=== PATIENT | male | born 1960 | race Caucasian/White ===

== ENCOUNTER 2020-12-25 15:25 | Outpatient (REF) | payer BC, SELFPAY ==
[2020-12-25 18:44] LABS: Estimated Average Glucose 166 mg/dL; Hemoglobin A1c % 7.4 %
[2020-12-25 18:50] LABS: Alanine Aminotransferase 25 U/L (0-40); Albumin Level 4.2 g/dL (3.5-5.0); Alkaline Phosphatase 71 U/L (39-117); Anion Gap 10 (12-20); Aspartate Amino Transferase 19 U/L (5-37); Bilirubin Total 0.5 mg/dL (0.0-1.0); Blood Urea Nitrogen 18 mg/dL (9-16); Calcium 9.4 mg/dL (8.4-10.2); Carbon Dioxide 31 mmol/L (22-29); Chloride 104 mmol/L (96-108); Estimated Glomerular Filt Rate > 60; Glucose Random 131 mg/dL (60-115); Potassium 4.5 mmol/L (3.3-5.1); Sodium 140 mmol/L (135-145); Total Protein 6.9 g/dL (6.5-8.0)
== END 2020-12-25 15:26 | disposition home or self-care (01) ==
LOC: HO.MANLDS 15:25
PROVIDERS: PCP Internal Medicine; Visit Provider Internal Medicine
DX: R73.01 Impaired fasting glucose (principal)
CPT/HCPCS: 36415; 80053; 83036

== ENCOUNTER 2021-03-27 11:12 | Outpatient (REF) | payer BC, SELFPAY ==
[2021-03-27 13:48] LABS: Alanine Aminotransferase 24 U/L (0-40); Albumin Level 4.1 g/dL (3.5-5.0); Alkaline Phosphatase 76 U/L (39-117); Anion Gap 10 (12-20); Aspartate Amino Transferase 16 U/L (5-37); Bilirubin Total 0.7 mg/dL (0.0-1.0); Blood Urea Nitrogen 15 mg/dL (9-16); Calcium 9.7 mg/dL (8.4-10.2); Carbon Dioxide 30 mmol/L (22-29); Chloride 105 mmol/L (96-108); Cholesterol 144 mg/dL; Estimated Glomerular Filt Rate > 60; Glucose Fasting 136 mg/dL (60-99); HDL Cholesterol 42 mg/dL; LDL Cholesterol Calculated 89 mg/dl; Potassium 4.6 mmol/L (3.3-5.1); Sodium 140 mmol/L (135-145); Total Protein 7.1 g/dL (6.5-8.0); Triglycerides 67 mg/dL
[2021-03-27 13:56] LABS: Estimated Average Glucose 137 mg/dL; Hemoglobin A1c % 6.4 %
== END 2021-03-27 11:13 | disposition home or self-care (01) ==
LOC: HO.MANLDS 11:12
PROVIDERS: PCP Physician Assistant; Visit Provider Physician Assistant
DX: E78.1 Pure hyperglyceridemia (principal); E11.9 Type 2 diabetes mellitus without complications
CPT/HCPCS: 36415; 80053; 80061; 83036

== ENCOUNTER 2022-06-02 10:14 | Outpatient (REF) | payer BC, SELFPAY ==
[2022-06-02 11:29] LABS: Estimated Average Glucose 169 mg/dL; Hemoglobin A1c % 7.5 %
[2022-06-02 11:47] LABS: Alanine Aminotransferase 21 U/L (0-40); Albumin Level 3.9 g/dL (3.5-5.0); Alkaline Phosphatase 75 U/L (39-117); Anion Gap 11 (12-20); Aspartate Amino Transferase 15 U/L (5-37); Bilirubin Total 0.8 mg/dL (0.0-1.0); Blood Urea Nitrogen 15 mg/dL (9-16); Carbon Dioxide 29 mmol/L (22-29); Chloride 105 mmol/L (96-108); Cholesterol 146 mg/dL; Estimated Glomerular Filt Rate > 60; Glucose Fasting 180 mg/dL (60-99); HDL Cholesterol 43 mg/dL; LDL Cholesterol Calculated 93 mg/dl; Potassium 4.8 mmol/L (3.3-5.1); Sodium 140 mmol/L (135-145); Total Protein 6.4 g/dL (6.5-8.0); Triglycerides 50 mg/dL
[2022-06-02 15:07] LABS: Creatinine Urine 76.05 mg/dL; Microalbumin Urine < 5.0 mg/L
== END 2022-06-02 10:15 | disposition home or self-care (01) ==
LOC: HO.MANLDS 10:14
PROVIDERS: Visit Provider Internal Medicine
DX: E11.9 Type 2 diabetes mellitus without complications (principal)
CPT/HCPCS: 36415; 80053; 80061; 82043; 83036

== ENCOUNTER 2023-08-19 11:03 | Outpatient (REF) | payer BC, SELFPAY ==
[2023-08-19 14:16] LABS: Rheumatoid Factor < 13.0 IU/mL (<15.0)
[2023-08-19 14:24] LABS: Erythrocyte Sedimentation Rate 5 MM/HR (0-15)
[2023-08-19 14:41] LABS: C Reactive Protein 0.12 mg/dL (< or = 0.50)
[2023-08-21 19:47] LABS: Anti Nuclear Antibody Screen NEGATIVE (NEGATIVE)
[2023-08-23 17:29] LABS: HLA B27 Negative (Negative)
== END 2023-08-19 11:04 | disposition home or self-care (01) ==
LOC: HO.MANLDS 11:03
PROVIDERS: Visit Provider Physician Assistant
DX: M54.59 Other low back pain (principal)
CPT/HCPCS: 36415; 85652; 86038; 86140; 86431; 86812

== ENCOUNTER 2024-06-01 13:57 | Outpatient (REF) | payer BC, SELFPAY ==
[2024-06-01 18:54] LABS: Alanine Aminotransferase 29 U/L (0-40); Albumin Level 4.3 g/dL (3.5-5.0); Alkaline Phosphatase 76 U/L (39-117); Anion Gap 13 (12-20); Aspartate Amino Transferase 22 U/L (5-37); Bilirubin Total 0.7 mg/dL (0.0-1.0); Blood Urea Nitrogen 21 mg/dL (9-16); Calcium 9.7 mg/dL (8.4-10.2); Carbon Dioxide 26 mmol/L (22-29); Chloride 105 mmol/L (96-108); Estimated Glomerular Filt Rate > 60; Glucose Random 134 mg/dL (60-115); Potassium 4.7 mmol/L (3.3-5.1); Sodium 139 mmol/L (135-145); Total Protein 8.1 g/dL (6.5-8.0)
== END 2024-06-01 13:58 | disposition home or self-care (01) ==
LOC: HO.MANLDS 13:57
PROVIDERS: Visit Provider Internal Medicine
DX: J18.9 Pneumonia, unspecified organism (principal)
CPT/HCPCS: 36415; 80053

== ENCOUNTER 2024-09-07 11:52 | Outpatient (REF) | payer MEDICARE, SELFPAY ==
--- OUTSIDE RECORDS SUMMARY | 2024-09-07 14:06 | XMS_ITS | Data Portability ---
Author Organization [facility], [facility] Address [address] [place] [address] Assessment Encounter Date Assessment Date Assessment LastModified by Organization Details LastModified Time 06/09/2023 06/09/2023 PRIMARY DIAGNOSI S: Osteoarthritis of the right hip. REASON FOR ADMISSION: The patient is being admitted for an anterior right total hip arthroplasty by Dr. Garcias on 06/17/2023. HISTORY OF PRESENT ILLNESS: Mr. Oconnor is an extremely, friendly and pleasant 62-year-old gentleman who presents today for evaluation of pain in his right hip prior to right total hip arthroplasty. He has a known longstanding history of right hip osteoarthritis and has undergone a lengthy course of conservative management with generalized failure of nonsurgical options. His pain is severe and worsens with activity. It has gotten to the point where it is significantly interfering with his ability to perform activities of daily living as well as daily social task. He is now interested in pursuing an anterior right total hip arthroplasty by Dr. Garcias for definitive relief of his pain from osteoarthritis. PAST MEDICAL HISTORY: 1. Osteoarthritis of the right hip. 2. Paroxysmal atrial fibrillation. 3. Hypertension. 4. Premature ventricular complexes. 5. Hyperlipidemia. 6. Type 2 diabetes. PAST SURGICAL HISTORY: Left total knee arthroplasty. MEDICATIONS: 1. Aspirin 81 mg tablet daily at night. 2. Fish oil daily, which the patient has stopped in preparation for surgery. 3. Flecainide 100 mg tablet as needed. 4. Lisinopril 20 mg tablet daily in the morning. 5. Metformin 500 mg tablet extended release at night. 6. Metoprolol succinate extended release 50 mg tablet daily in the morning. 7. Simvastatin 20 mg tablet daily at bedtime. ALLERGIES: HE STATES THAT HE IS ALLERGIC TO ELAINE INHIBITORS, WHICH CAUSES A COUGH. SOCIAL HISTORY: He is . He denies alcohol, illicit drug use or tobacco use. He is a former smoker, he quit 40 years ago. PHYSICIANS: The patient's primary care physician is Dr. Jose Garner. REVIEW OF SYSTEMS: The patient's 12-point review of systems is negative unless mentioned in the HPI. PHYSICAL EXAMINATION: VITAL SIGNS: Height is 195 cm, weighs is 237 pounds, temperature is 97.6, blood pressure is 129/76, and pulse of 67. GENERAL: Alert and oriented, normal affect, and grooming. SKIN: Intact without rash or lesions. Nails without clubbing or cyanosis. HEENT: Normocephalic. Conjunctivae pink. Sclerae are anicteric. NECK: Supple. Trachea midline. No lymphadenopathy. LUNGS: Clear to auscultation bilaterally. Breathing is unlabored. HEART: Regular rate and rhythm, normal S1, S2. No murmurs, rubs or gallops appreciated. ABDOMEN: Soft, nontender with normal bowel sounds. EXTREMITIES: Right hip, no erythema, abrasion or edema noted. There is no effusion. The lower extremity alignment is neutral. He is not experiencing hip tenderness to palpation. There is a positive Stinchfield test. Range of motion shows extension of 0 degrees, flexion of 100 to 110 degrees, internal rotation and flexion is 15 degrees, external rotation and flexion 30-35 degrees, abduction is 30-40 degrees and adduction is 10-15 degrees. No hip deformity was present. He does ambulate with an antalgic gait on the right leg. There is 2+ dorsalis pedis pulses. There is normal sensation bilaterally to lower extremities, there is 5/5 ankle dorsiflexion and plantar flexion bilaterally. PREOPERATIVE DIAGNOSTIC DATA: Orthopedic x-rays of the hip show severe DJD present to the right hip. There are changes consistent with osteoarthritis including joint space narrowing, subchondral sclerosis and osteophyte formation, arthrosis, primarily affecting the superior compartment. EKG which was performed at the medicine preoperative clinic showed a sinus bradycardia with a heart rate of 53. PREOPERATIVE LABORATORY DATA: CBC, coags and chemistries were reviewed and are satisfactory for surgery. Hemoglobin A1c was 7.0. His creatinine was 0.9. His GFR was 96. ASSESSMENT AND PLAN: The patient has advanced osteoarthritis of the right hip and is now scheduled for an anterior right total hip arthroplasty with Dr. Garcias on 06/17/2023. He was seen by the medicine consult program who deemed him to be a low cardiovascular and a low pulmonary risk. The patient states that he has episodes where when he is on his back, he feels like his breathing wakes him up. Medicine stated that he had untreated sleep apnea, so we will monitor end tidal CO2 and O2 monitoring when sleeping. We will monitor point of cares and order sliding scale insulin as needed for his elevated hemoglobin A1c. He will receive IV TXA. We will place on aspirin postoperatively for DVT prophylaxis. We will monitor him on telemetry postop throughout his hospital stay. We are awaiting a note from his lithograph designer for risk stratification prior to surgery. Discharge plan will be to home with services, the patient would like to stay overnight after surgery. He has been counseled regarding the risks and benefits of the proposed procedures. His questions have been answered. He acknowledges understanding. The patient wishes to proceed with an anterior right total hip arthroplasty by Dr. Garcias. CONTACT: His Beth at [phone]. Prescription given at the time of the history and physical include aspirin, Colace, pantoprazole and Zofran. The patient did not want a prescription for Celebrex. He will require prescriptions for pain medication at the time of discharge. [email or web address] Not available 06/09/2023 13:48:56 07/28/2023 07/28/2023 Imaging: Imaging ordered, independently reviewed and interpreted by Andrew Garcias MD reveals the following findings: XR Hip Right hip: Two views of the hip were obtained including AP pelvis and groin lateral views. Status post hip surgery: Status post LARA with no evidence of complication, well fixed, well aligned, and located. There is good church of leg length and offset without loosening or migration. Impression: Status post right anterior total hip arthroplasty, 6 weeks out Plan: The patient is doing well, continue activities as tolerated. Follow up with repeat radiographs in 1 year, or sooner if problems arise. [email or web address] Not available 07/28/2023 16:45:31 07/21/2024 07/21/2024 Imaging: Imaging ordered, independently reviewed and interpreted by Andrew Garcias MD reveals the following findings: XR Knee Right Knee: Three views of the knee were obtained including AP, sunrise, and lateral views. Status post medial unicompartmental knee arthroplasty. There is some radiolucency underneath the tibial component consistent with possible loosening, there is also progressive osteoarthritis present within the lateral and patellofemoral compartments. There is no evidence of osteolysis. No fractures are present. Alignment: Neutral XR Hip Left Hip: Two views of the hip were obtained including AP pelvis and groin lateral views. Severe DJD present. Changes consistent with osteoarthritis including joint space narrowing, subchondral sclerosis, and osteophyte formation. Arthrosis primarily affects the superior compartment. Impression: Right failed partial knee replacement Plan: We recommend revision total knee arthroplasty. There are not signs of infection at this point but the patient understands that if infection is seen at the time of surgery, we would instead proceed with a staged approach to the knee. Prior to surgery the patient needs to have the following: CBC, CMP, medical clearance, Risks and benefits of surgery were discussed with the patient and the patient understood. We discussed the alternatives and details of surgery and postoperative care with the patient. The patient understands the concepts of surgery and the postoperative conditions required for healing. The patient further understands that surgery can have unfavorable outcomes. In particular, we discussed the possible complications of nonhealing of the tissues and need for reoperation, nerve injury, bleeding or blood loss requiring transfusion, hematoma or complications of anticoagulation used to prevent blood clots, infection requiring further surgery or removal of implants, massive infection requiring amputation, or continued or worse pain. We also discussed worsening of chronic medical conditions and life-threatening complications including stroke, clot, heart attack, pulmonary embolism and related to the surgery or anesthesia, or other factors. The patient understands these risks and benefits of surgery and wishes to proceed, and has signed consent willfully. VTE risk factors: History of VTE: No Active malignancy (excluding skin cancer): No Systolic heart failure (LVEF < 40%): No Bilateral TKA or LARA being performed: No Current use of hormonal therapy: No (Testosterone use excluded) Oral contraceptive pills Hormone replacement therapy Known thrombophilic disorder: No Antiphospholipid Syndrome Factor V Leiden Prothrombin Gene Mutation Protein C/S Deficiency Anti-Thrombin Deficiency Paroxysmal Nocturnal Hemoglobinuria (PNH) Myeloproliferative Disorder/ZOË-2 Mutation Polycythemia Vera Chronic Myelogenous Leukemia Essential Thrombocytosis Total risk factors: 0 Based on risk stratification above, will plan to use aspirin for DVT prophylaxis. Patients prescribed antithrombotic therapy for an indication other than post-operative VTE prophylaxis should be assessed on an individual basis for continuation of their current therapy. If using a direct oral anticoagulant (DOAC) as home regimen, either resume DOAC post-op, or consider temporary transition to Warfarin therapy in the post-operative period. [email or web address] Not available 07/21/2024 12:54:25 Plan of Treatment Reminders Order Date Submit Date Provider Last Modified By Organization Details Last Modified Time Details Appointments None recorded. Lab None recorded. Referral None recorded. Procedures None recorded. Surgeries None recorded. Imaging XR, knee, 4 or more view - bilateral knee pain. room 201 2024 025 [email or web address], [address], [address], [place], [address], 5 07:51:56 XR, hip + pelvis, unilatera l, 2 or 3 view - New eval L hip. AB protocol. room 201 2024 025 [email or web address] [facility], [address], [address], [place], [address], 5 07:51:56 XR, hip + pelvis, unilatera l, 2 or 3 view - rm 201 pramod hip. new XR per AB 2023 024 [email or web address] [facility], [address], [address], [place], [address], 4 06:19:31 XR, hip, unilatera l, 2 or 3 view - 202 2nd PO RTHR AB 2023 024 nhulse [facility], [address], [address], [place], [address], 4 23:19:36 XR, pelvis, 1 or 2 view 2023 024 [email or web address] [facility], [address], [address], [place], [address], 4 17:54:45 Medication Orders aspirin 325 mg tablet,de layed release [id number], [address] [place], [address], 5 11:16:23 Colace 100 mg capsule [id number], [address] [place] [address], [address], 11:16:53 pantopraz ole 40 mg tablet,de layed release [address]23 [email or web address] [id number] [address] [place], [address], 5 11:19:18 ondansetr on HCl 4 mg tablet 2023 024 [id number], [address] [place], [address], 11:18:20 Patient TargetsNo targets recorded. Patient InstructionsNo instructions recorded. Reason for Referral None Reported. Results Created Date Observation Date Name Description Value Unit Range Abnormal Flag Note LastModifiedBy Organization Detail LastModifiedTime 11/13/19 24 11/23/2021 imagi ng/di agnos tic resul t No observ ation record ed. [email or web address] Not Available 10/16 23:19:13 11/17/19 24 11/17/2023 XR, hip + pelvi s, unila teral , 2 or 3 view [email or web address]:/ [email or web address] ?Encry pted=s hAaTro YD8dLq bEUv6g %2BXZw aYqtaq 0bqfl% 2Fg9IQ a4ajBk vP9nXo QUaueC m3YtLR FvZlgJ JJ8mAn HZtai3 4a3541 AC0KrY 3SEWKS vKiQtr MwF INTERFACE [facility] [address] [facility] [address], [place], [address], 11/17/2023 11:21:52 11/17/19 24 11/17/2023 XR, hip + pelvi s, unila teral , 2 or 3 view [email or web address]:/ [email or web address] ?Encry pted=s hAaTro YD8dLq bEUv6g %2BXZw aYqtaq 0bqfl% 2Fg9IQ a4ajBk vP9nXo QUaueC m3YtLR FvZl J8Mesa HZtai3 8a7938 AC0KrY 3SEWKS vKiQtr MwF INTERFACE [facility] [address], [place], [address], 11/17/2023 11:21:54 07/22/19 25 07/21/2024 XR, knee, 4 or more view [email or web address]:/ [email or web address] ?Encry pted=s hAaTro YD8dLq bEUv6g %2BXZw aYqtaq 0bqfl% 2Fg9IQ a4ajBk vP9nXo QUaueC m3YtLR FvZl JJ8mAn HZtai3 1m9585 AC0Kla nqDUKS nKiQtr MwF INTERFACE [facility] [address], [place], [address], 07/21/2024 11:32:08 07/22/19 25 07/21/2024 XR, knee, 4 or more view [email or web address]:/ [email or web address] ?Encry pted=s hAaTro YD8dLq bEUv6g %2BXZw aYqtaq 0bqfl% 2Fg9IQ a4ajBk vP9nXo QUaueC m3YtLR FvZlgJ JJ8mAn HZtai3 9x1042 AC0Kla nqDUKS nKiQtr MwF INTERFACE [facility] [address], [place], [address], 07/21/2024 11:32:09 07/22/19 25 07/21/2024 XR, hip + pelvi s, unila teral , 2 or 3 view [email or web address]:/ [email or web address] ?Encry pted=s hAaTro YD8dLq bEUv6g %2BXZw aYqtaq 0bqfl% 2Fg9IQ a4ajBk vP9nXo QUaueC m3YtLR FvZlgJ JJ8mAn HZtai3 5s4638 AC0Kla nqDUKe vKiQtr MwF INTERFACE [facility] [address] [facility] [address], [place], [address], 07/21/2024 11:37:43 07/22/19 25 07/21/2024 XR, hip + pelvi s, unila teral , 2 or 3 view [email or web address]:/ [email or web address] ?Encry pted=s hAaTro YD8dLq bEUv6g %2BXZw aYqtaq 0bqfl% 2Fg9IQ a4ajBk vP9nXo QUaueC m3YtLR FvZlgJ JJ8mAn HZtai3 6t6014 AC0Kla nqDUKe vKiQtr MwF INTERFACE [facility] [address] [facility] [address], [place], [address], 07/21/2024 11:37:45 Result Notes Documentation Provider Name and Address Organization Details Recorded Time Xr, Hip + Pelvis, Unilateral, 2 Or 3 View : [email or web address] Encrypted=vqYaFenUR7iAgsU Uv6g%6LCMafXtvtv5kwxw%2Fg 0HAy2xhUzbX9jMwIIqvnYt4Bj SANdZrpOJU6gExDDbtz01k549 4VJ5JqQ2EUPLMtLdGowQlR Not Available [facility] 11/17/2023 11:21: 52 Xr, Hip + Pelvis, Unilateral, 2 Or 3 View : [email or web address] Encrypted=bsJbWkhUW2uFelC Uv6g%1KTCkyYvqoh0xylh%2Fg 7AJc9nvWakX2aJgLLmfkWt2Tn JZDgQnmJPS6aKbWVxcs52e323 0JB1IyO5CTPYPnRrXcwXyY Not Available [facility] 11/17/2023 11:21: 54 Xr, Knee, 4 Or More View : [email or web address] Encrypted=uoBdYwgJL2gVmlV Uv6g%0PWRqaZikfd1rniz%2Fg 0ZLm3kfUtrQ6qGzJCsesVm9Ny CWVnKiaEHL2lKbXJkav94i792 0LI1XmbwcQHXKoMoCslVmX Not Available [facility] 07/21/2024 11:32: 09 Xr, Knee, 4 Or More View : [email or web address] Encrypted=soGaTgjID4aYckS Uv6g%2ZNVujTblir3cicn%2Fg 7LIi1lvFtmF3fMzLHtreAp2Ms LWPkLstUOC5xXqZEqnt97r758 5UC0IbbvvKCTSgRwPzvLqH Not Available [facility] 07/21/2024 11:32: 10 Xr, Hip + Pelvis, Unilateral, 2 Or 3 View : [email or web address] Encrypted=eoNsQkqNI9jCqiG Uv6g%6ZWNyrNolvo2zskn%2Fg 0BKt3ykQsxX9cUgIGxitLh5Yn HGLwJbgRJC2zGgLAyst61m252 4LP0IrbzvKPFphUlGzgRjW Not Available [facility] 07/21/2024 11:37: 44 Xr, Hip + Pelvis, Unilateral, 2 Or 3 View : [email or web address] Encrypted=euVjTvhTH5lRlpK Uv6g%6JUCagIatcj1onql%2Fg 2MAg7glCtuP0hCxDXmbyCw6Ay FHEuXssVGM5bRmPQdck69c978 9SM3UnbixQENlfLgXlqVwW Not Available [facility] 07/21/2024 11:37: 46 Problems Name Problem SNOMED Code Status Onset Date Resolution Date Notes Provider Name and Address Organization Details Recorded Time No complaints 819350015 Active Status : 'I'; Not Available [facility] 4 09:12:00 Osteoarthr itis of right knee joint 0853564827767 00 Active 2024 Andrew Garcias MD [address], [place], [address] , [facility] 5 12:54:12 Type 2 diabetes mellitus 99499704 Active 2021 Status : 'A'; Not Available [facility] 4 10:58:45 Paroxysmal atrial fibrillati on 130618204 Active 2021 Status : 'A'; Not Available [facility] 4 10:58:45 Pain of left shoulder joint 6990322040659 9109 Active 2021 Status : 'A'; Not Available [facility] 4 10:58:45 History of total replacemen t of right hip joint 8431797409671 00 Active 2023 Andrew Garcias MD [address], [place], [address] , [facility] 4 16:45:29 Problem Notes None recorded. Procedures Surgical History Date Name Laterality Status Provider Name and Address Organization Details Recorded Time 4 Hip Kenalog Injection, L/R w/US completed Som Whiting PA-C [address], [place], [address], [facility] 11/17/2023 14:09:59 Imaging Results None recorded. Procedure Notes None recorded. Medical Equipment None Reported. Allergies No known drug allergies Medications Name Sig Start Date Stop Date Status Note LastModified by Organization Details LastModified Time Prescriptio n - New 07/21 completed french cord binder 06/05 Not Available Not Available Not Available amoxicillin 500 mg capsule TAKE 4 CAPSULES BY MOUTH 1 HOUR PRIOR TO COMING IN FOR A DENTAL APPOINTME NT. active Not Available Not Available No t Available atorvastati n 40 mg tablet TAKE 1 TABLET BY MOUTH 1 TIME EACH DAY. active Not Available Not Available No t Available prednisone 10 mg tablet TAKE 4 TABLETS BY MOUTH X 2 DAYS, 3 TABLETS X 2 DAYS, 2 TABLETS X 2 DAYS, 1 TABLET X 2 DAYS 07/21 completed Not Available Not Available Not Available doxycycline hyclate 100 mg capsule TAKE 1 CAPSULE BY MOUTH TWICE A DAY FOR 10 DAYS 07/21 completed Not Available Not Available Not Available atorvastati n 20 mg tablet TAKE 1 TABLET BY MOUTH EVERY DAY 07/21 completed Not Available Not Available Not Available azithromyci n 250 mg tablet TAKE 2 TABLETS BY MOUTH TODAY, THEN TAKE 1 TABLET DAILY FOR 4 DAYS DIRECTED 07/21 completed Not Available Not Available Not Available benzonatate 200 mg capsule TAKE 1 CAPSULE BY MOUTH THREE TIMES A DAY NEEDED FOR 7 DAYS 07/21 completed Not Available Not Available Not Available metoprolol succinate ER 50 mg tablet,exte nded release 24 hr TAKE 1 TABLET BY MOUTH EVERY DAY active Not Available Not Available No t Available lisinopril 20 mg tablet TAKE 1/2 TABLET BY MOUTH EVERY DAY active Not Available Not Available No t Available ondansetron HCl 4 mg tablet TAKE 1 TABLET BY MOUTH THREE TIMES A DAY DIRECTED FOR 7 DAYS 07/21 completed Not Available Not Available Not Available glipizide ER 5 mg tablet, extended release 24 hr TAKE 1 TABLET BY MOUTH EVERY DAY 07/21 completed Not Available Not Available Not Available loteprednol etabonate 0.2 % eye drops,suspe nsion INSTILL 1 DROP INTO BOTH EYES TWICE A DAY active Not Available Not Available No t Available aspirin 81 mg tablet,gayle yed release TAKE 1 TABLET BY MOUTH EVERY DAY 07/21 completed Not Available Not Available Not Available tramadol 50 mg tablet TAKE 1 TO 2 TABLETS BY MOUTH EVERY 6 HOURS NEEDED FOR MILD PAIN. DO NOT EXCEED 8 TABLETS (400MG) PER DAY. 07/21 completed Not Available Not Available Not Available ketorolac 0.5 % eye drops INSTILL 1 DROP IN RIGHT EYE THREE TIMES A DAY FOLLOWING SURGERY FOR 3 WEEKS 07/21 completed Not Available Not Available Not Available prednisolon e acetate 1 % eye drops,suspe nsion INSTILL 1 DROP INTO RIGHT EYE TWICE A DAY 07/21 completed Not Available Not Available Not Available aspirin 325 mg tablet,gayle yed release TAKE 1 TABLET BY MOUTH TWICE A DAY DIRECTED 07/21 completed Not Available Not Available Not Available doxycycline monohydrate 100 mg capsule TAKE 1 CAPSULE BY MOUTH TWICE A DAY 07/21 completed Not Available Not Available Not Available pantoprazol e 40 mg tablet,gayle yed release TAKE 1 TABLET BY MOUTH EVERY DAY DIRECTED 07/21 completed Not Available Not Available Not Available erythromyci n 5 mg/gram (0.5 %) eye ointment APPLY 1 APPLICATI ON IN RIGHT EYE AT BEDTIME 07/21 completed Not Available Not Available Not Available pseudoephed rine-guaife nesin ER 80-700 mg tablet,exte nded release Percocet 5-325MG Tablet 1-2 Q 4-6 Hours Prn 06/11 completed Statu s: 'Disc ontin ued'; Not Available Not Available Not Available neomycin-po lymyxin-dex ameth 3.5 mg/mL-10,00 0 unit/mL-0.1 % eye drops INSTILL 1 DROP IN RIGHT EYE THREE TIMES A DAY FOR 1 WEEK THEN DAILY UNTIL SEEN BY DOCTOR 07/21 completed Not Available Not Available Not Available flecainide 100 mg tablet TAKE 1 TABLET BY MOUTH TWICE A DAY 07/21 completed Not Available Not Available Not Available hydrocodone -homatropin e 5 mg-1.5 mg/5 mL oral solution TAKE 5 ML BY MOUTH EVERY 4 HOURS NEEDED FOR 5 DAYS active Not Available Not Available No t Available docusate sodium 100 mg capsule TAKE 1 CAPSULE BY MOUTH TWICE A DAY DIRECTED FOR 30 DAYS 07/21 completed Not Available Not Available Not Available codeine 10 mg-guaifene sin 100 mg/5 mL oral liquid TAKE 10 ML BY MOUTH EVERY 4 HOURS FOR 5 DAYS 07/21 completed Not Available Not Available Not Available levofloxaci n 500 mg tablet TAKE 1 TABLET BY MOUTH EVERY 24 HOURS FOR 7 DAYS 07/21 completed Not Available Not Available Not Available methylpredn isolone 4 mg tablets in a dose pack TAKE 6 TABLETS ON DAY 1 DIRECTED ON PACKAGE AND DECREASE BY 1 TAB EACH DAY FOR A TOTAL OF 6 DAYS 07/21 completed Not Available Not Available Not Available metformin ER 500 mg tablet,exte nded release 24 hr TAKE 4 TABLETS BY MOUTH AT BEDTIME DIRECTED active Not Available Not Available No t Available oxycodone 5 mg tablet TAKE 1/2 TO 1 TABLET BY MOUTH EVERY 4 HOURS NEEDED 07/21 completed Not Available Not Available Not Available Restasis 0.05 % eye drops in a dropperette PLACE 1 DROP INTO EACH EYE EVERY 12 (TWELVE) HOURS. 07/21 completed Not Available Not Available Not Available Januvia 50 mg tablet TAKE 1 TABLET BY MOUTH EVERY DAY FOR 30 DAYS 07/21 completed Not Available Not Available Not Available OneTouch Verio test strips USE DIRECTED ONCE DAILY FOR TESTING BLOOD SUGARS. active Not Available Not Available No t Available Eliquis 5 mg tablet TAKE 1 TABLET BY MOUTH TWICE A DAY active Not Available Not Available No t Available Jardiance 10 mg tablet TAKE 1 TABLET BY MOUTH EVERY DAY active Not Available Not Available No t Available OneTouch Delica Plus Lancet 30 gauge USE 1 LANCET TO SKIN ONCE DAILY FOR TESTING BLOOD SUGARS active Not Available Not Available No t Available Vitals Date Recorded Body height Heart rate Body temperature Body mass index (BMI) Body weight Systolic blood pressure Diastolic blood pressure Provider Name and Address Organization Details Last Updated DateTime 195.58 cm 67 /min 97.6 [degF] 28.1 kg/m2 339417. 39 g 129 mm[Hg] 76 mm[Hg] KEYSHA MONGE [facility] 10:56:24 Date Recorded Body height Body temperature Body mass index (BMI) Body weight Provider Name and Address Organization Details Last Updated DateTime 06/30/2023 195.58 cm 97.1 [degF] 27.6 kg/m2 756815.02 g lisa lockett [facility] 06/30/2023 16:00:13 Date Recorded Body height Body mass index (BMI) Body weight Provider Name and Address Organization Details Last Updated DateTime 07/21/2024 191.77 cm 28.3 kg/m2 473757.53 g Andrew Garcias MD [address], [place], [address], [facility] 07/21/2024 11:16:03 Date Recorded Body height Body mass index (BMI) Body weight Provider Name and Address Organization Details Last Updated DateTime 07/28/2023 195.58 cm 27.3 kg/m2 492496.25 g ISSA BOSTON [facility] 07/28/2023 14:12:07 Date Recorded Body height Provider Name an d Address Organization Details Last Updated DateTime 11/17/2023 195.58 cm DENIA TRIPP [facility] 11/17/2023 10:39:27 Social History None recorded. Functional Status None recorded. Mental Status None recorded. Family History Nothing Reported. Medical History No medical history recorded. Past Encounters Encounter ID Performer Location Encounter Start Date Encounter Closed Date Diagnosis/Indication Diagnosis SNOMED-CT Code Diagnosis ICD10 Code Diagnosis Note [id number] Clif Webster NP [facility] [address] [place] [address] 06/09/2023 10:48:26 06/11/2023 07:30:29 Osteoarthritis of right hip joint [id number] M16.11 [id number] LORRAINE Madrigal [address] [place] [address] 06/30/2023 15:48:12 07/22/2023 14:13:53 History of total replacement of right hip joint [id number] 15253 Z96.641 Postoperative visit 1836 38085 Z48.89 Hip joint prosthesis present [id number] Z96.355 [id number] MD Cj Alexandra [address] [place] [address] 07/28/2023 14:00:26 08/21/2023 12:04:49 History of total replacement of right hip joint [id number] 66601 Z96.340 [id number] LORRAINE Nam [address] [place] [address] 11/17/2023 10:04:13 12/12/2023 12:25:00 Pain of bilateral hip joints [id number] M25.551 M25.552 Osteoarthr itis of left hip joint [id number] 12209 M16.12 You have been provided with a cortisone injection in order to reduce the pain and inflammati on that you are experienci ng. The injection consists of two medication s. Cortisone (an anti-infla mmatory that will take 48-72 hours to take effect) and Lidocaine (a numbing agent that will last 2-3 hours). Please note that not everyone will have a lasting response following the injection. PATIENT INSTRUCTIO NSOnce the Lidocaine wears off, you may have an increase in your pain. I recommend icing the affected area for 20 minutes 3-4 times per day.It is recommende d that you refrain from any high level activities using the joint or limb that was injected for approximat shanice 24-48 hours. Normal day-to-day activities are generally not a problem.PO SSIBLE SIDE EFFECTSInd ividuals with dark complexion s may experience some skin discolorat ion locally at the site of the injection. There is the possibilit y of an increase in discomfort within 48 hours following the injection. This is called a flare . To help minimize the chances of this, please see the post-injec tion instructio ns above.Ther e is a less than 1% chance of an infection. If you notice any signs of infection (redness, warmth, drainage, fever greater than 100 degrees) please call our office or contact us through the portal [facility]. [id number] MD AIYANA Alexandra [address] [place] [address] 07/21/2024 10:51:07 07/26/2024 07:51:56 Pain of hip region [id number] M25.552 Pain of knee region 1003 [id number] M25.561 M25.562 Osteoarthr itis of right knee joint [id number] 60420 M17.11 Health Concerns Section Related Observation LastModified by Organization Detai ls LastModified Time None Recorded Concern Status LastModified by Organization Details LastModified Time None Recorded Advance Directives Directive None Recorded Payers Insurance Date Sequence Insurance Name Policy Number Policy Castro Covered Member ID Castro Member ID Guarantor Name 07/26/2024 1 [facility] [id number] Abdirashid Oconnor [id number] Abdirashid Oconnor Notes Date Note Type Note Provider Name and Address Organization Details Recorded Time 06/30/2023 text/html I am seeing the patient today under the supervision of Dr. Garcias who was available but who did not see the patient. HPI: Patient presents for first orthopedic follow-up status post right anterior total hip arthroplasty. Happy with results. No significant complaints of pain. No neurovascular changes. Past family, medical, social history and review of systems has been reviewed, updated, and is located in the patient s chart. Examination: The patient is well appearing and in no apparent distress. Alert and oriented x3. Gait is antalgic on operative side. Examination of the right hip reveals a healing surgical incision. There is some irritation of the skin from the Aquacel dressing and possibly the skin glue. No drainage or blistering. Appropriate postoperative edema. Supple pain-free range of motion. Calf is soft and nontender bilaterally. 4+/5 strength of hip flexion and extension. X-rays performed today at [facility] have been reviewed. Images include an AP pelvis view. Radiographs demonstrate a total joint arthroplasty with good interfaces and alignment. No evidence of any lysis or loosening. No acute fractures appreciated. Impression: Two weeks status post right anterior total hip arthroplasty Plan: Nature of the diagnosis was discussed with the patient today. At this point the patient is doing well. Recommended continued physical therapy to focus on stretching and strengthening exercises. Patient is on ASA for DVT prophylaxis. Pain is controlled. We reviewed the signs/symptoms of infection. Follow up as scheduled, sooner if there are any complications. All questions have been answered. [employer] speech recognition onion farmer software was used to create portions of this document. An attempt at proofreading has been made to minimize errors. Please call for corrections. Kina Ramirez PA-C [address] [place], [place] [address] [address], [place], [address], [facility] - [facility] 06/30/2023 16:46:15 07/28/2023 text/html History of prese nt illness:This patient follows up today and is now 6 weeks out from right anterior total hip arthroplasty. Their pain is well controlled and they are progressing as expected with physical therapy. Able to do current activities without significant difficulty. They have no major complaints at this time and are satisfied with their current state of recovery.Past family, medical, social history and review of systems has been reviewed and updated, and is located in the patient s chart. Andrew Garcias MD [address], [place], [address], [place] [facility] 07/28/2023 16:45:45 11/17/2023 text/html I am seeing the patient today under the supervision of Dr. Mello who was available but who did not see the patient. HPI: Patient has history of left hip osteoarthritis. Patient underwent interarticular cortisone injection at that visit. Patient reports excellent relief of symptoms with that injection, now pain has returned. There is no new injury to account for this. Pain is located in the groin, difficulty with any sort of hip flexion activities to include putting on shoes and socks and getting in and out of a car. Review of systems: As noted patient intake. Physical exam:The patient is well appearing and in no apparent distress. Alert and oriented x3. Gait is antalgic on the left. Examination of the hip reveals no effusion, erythema, or warmth. No point tenderness over the greater trochanter. Forward flexion to 90. External rotation to 60 internal rotation to 0. - Stinchfield, + impingement, - straight leg raise. Calf soft and nontender. 5/5 strength with hip flexion/extension. X-ray: 2 views were ordered obtained and independently reviewed at [facility] today. Radiographs demonstrate osteoarthritis of the left hip. No significant advancement from previous radiographs. No evidence of AVN, no acute fracture appreciated. No lytic or blastic lesions noted. Assessment: Osteoarthritis of the hip Plan: Nature of the diagnosis discussed with the patient today. Patient has done very well with cortisone injections in the past recommended a repeat cortisone injection today. Patient understands that they are not a surgical candidate 3 months from today's injection.Patient agrees After a long discussion with the patient which included the risk and benefits of the procedure. The patient is interested in proceeding with intra-articular left hip injection. After consent was obtained we proceeded with injection. Risks of the procedure were discussed with patient including worsening osteoarthritis, small risk to blood vessels and tendons and nerves.After consent was obtained from the patient. Under normal sterile fashion using chlorhexidine, under ultrasound guidance, neurovascular bundle was first identified and then 2 cc of 1% lidocaine 1 cc of 40 mg of Kenalog was injected intra-articularly into the patient's hip. Ultrasound documentation was saved into PACS. Patient tolerated procedure well. Postprocedure protocol was discussed with the patient. Patient will contact with any questions or worsening symptoms. Follow-up in 3 months for re-evaluation, sooner if any difficulty Som Whiting PA-C [address], [place], [address], [facility] 11/17/2023 14:10:42 07/21/2024 text/html History of prese nt illness:Complaint: Right knee painPain: The pain is severe, it is worsened with activity and has gotten to point where it limits the patient's ability to ambulate moderate distances without needing to rest for pain relief. The patient is limited in their regular daily and social activities as a result of this painRobert is an extremely friendly and pleasant 64-year-old male who presents today for evaluation for his right knee. He had a right knee medial compartment unicompartmental arthroplasty performed approximately 15 years ago, he states that over the last 3 years he has been having worsening pain in his right knee. We have previously evaluated to this knee and found him to have progressive arthritis in the remaining undersurfaced areas of his joint. 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 Andrew Garcias MD [address], [place], [address], [facility] 07/21/2024 12:54:37
[2024-09-07 14:33] LABS: Prostate Specific Antigen 2.95 ng/mL (<0.05-4.0)
== END 2024-09-07 11:53 | disposition home or self-care (01) ==
LOC: HO.MANLDS 11:52
PROVIDERS: Visit Provider Physician Assistant
DX: N40.1 Benign prostatic hyperplasia with lower urinary tract symptoms (principal)
CPT/HCPCS: 36415; 84153

== ENCOUNTER 2024-12-30 11:34 | Outpatient (REF) | payer MEDICARE, SELFPAY ==
[2024-12-30 13:31] LABS: MANUAL DIFF FLAG NO
[2024-12-30 13:39] LABS: Hematocrit 45.6 % (42.0-52.0); Hemoglobin 15.0 g/dl (14.0-18.0); Imm Gran Abs Auto 0.01 X10*3/uL (0.00-0.03); Imm Gran Pct Auto 0.2 % (0.0-0.4); Lymphocytes Absolute Auto 1.8 X10*3/uL (1.2-4.9); Mean Corpuscular HGB Conc 32.9 g/dl (31.0-36.0); Mean Corpuscular Hemoglobin 30.9 pg (27.0-33.0); Mean Corpuscular Volume 93.8 fL (80.0-98.0); NRBC Abs Auto 0.000 X10*3/uL (0.0-0.012); NRBC Pct Auto 0.0 /100WBC (0.0-0.2); Platelet Count 160 X10*3/uL (160-400); Red Blood Count 4.86 X10*6/uL (4.60-5.80); White Blood Count 5.2 X10*3/uL (4.8-10.8)
[2024-12-30 14:33] LABS: Microalbum/Creatinine Ratio Ur 6.8 ug/mg cr (<30)
[2024-12-30 15:55] LABS: Alanine Aminotransferase 18 U/L (0-40); Albumin Level 4.3 g/dL (3.5-5.0); Anion Gap 11 (12-20); Aspartate Amino Transferase 24 U/L (5-37); Blood Urea Nitrogen 22 mg/dL (9-16); Calcium 9.6 mg/dL (8.4-10.2); Carbon Dioxide 28 mmol/L (22-29); Chloride 106 mmol/L (96-108); Cholesterol 125 mg/dL (<200); Estimated Glomerular Filt Rate > 60; HDL Cholesterol 43 mg/dL (>40); Potassium 4.9 mmol/L (3.3-5.1); Sodium 140 mmol/L (135-145); Total Protein 6.9 g/dL (6.5-8.0); Triglycerides 84 mg/dL (<150)
[2024-12-30 16:09] LABS: Hemoglobin A1C 201.8545 umol/L; Total Hemoglobin (HGBA1C) 4055.9402 umol/L
[2024-12-30 18:07] LABS: Alkaline Phosphatase 74 U/L (39-117)
== END 2024-12-30 11:35 | disposition home or self-care (01) ==
LOC: HO.MANLDS 11:34
PROVIDERS: Visit Provider Internal Medicine
DX: I10 Essential (primary) hypertension (principal); E11.9 Type 2 diabetes mellitus without complications
CPT/HCPCS: 36415; 80053; 80061; 82043; 82570; 83036; 85025